=== PATIENT | female | born 1970 | race Caucasian/White ===

== ENCOUNTER 2018-07-28 06:13 | Day surgery (SDC) | payer BC ==
[2018-07-28] MEDS ORDERED: NA CHLORIDE 0.9% 1,000 ML ONE ×2 (06:29→07:24)
[2018-07-28] MEDS ORDERED: LIDOCAINE 1% MPF 5 ML VIAL ONE (06:31)
[2018-07-28 06:33] LABS: Specific Gravity 1.025 (1.005-1.030)
[2018-07-28] MEDS ORDERED: PROPOFOL 200 MG/20 ML VIAL IV ONE ×3 (07:19→08:34)
[2018-07-28] MEDS ORDERED: FENTANYL CITR 100 MCG/2 ML ONE ×2 (07:19→08:49)
[2018-07-28] MEDS ORDERED: LIDOCAINE 2% MPF 5 ML VIAL ONE (07:19)
[2018-07-28] MEDS ORDERED: MIDAZOLAM HCL 2 MG/2 ML INJ ONE (07:19)
[2018-07-28] MEDS: LIDOCAINE 1% W/EPI 1:100,000 MDV 50 ML VIAL ONE ×2 (07:54→07:59)
[2018-07-28] MEDS ORDERED: KETOROLAC 30 MG/ML INJ ONE (08:35)
[2018-07-28] MEDS ORDERED: FENTANYL CITR 100 MCG/2 ML IV ONE (09:04)
--- NOTE | 2018-07-28 20:17 | OP ---
Date of Procedure: 07/28/2018 Surgeon: Lisa Zuniga MD Preoperative Diagnoses: Left lower quadrant pain, large leiomyomata, menopause. Postoperative Diagnoses: Left lower quadrant pain, large leiomyomata, menopause. Procedures Performed: Hysteroscopy and dilatation and curettage. Anesthesia: MAC plus paracervical block. Specimens: Endometrial curettings. Complications: None. Drains: None. Condition: Stable. Findings: Intrauterine cavity appeared to be narrow. No intracavitary lesions were seen. Only 1 tu bal ostium was identified, extremely high cervix, deviated anteriorly. Scant endometrial curettings were obtained, so endometrial biopsy Pipelle was used in order to retrie ve the endometrial sample to maximize the chances of optimal sampling. Indications: The patient is a 48-year-old, presented with left lower quadrant pain. Her primary car e physician, Dr. Edwards, had detected an abdominal mass for which she got worked up and these were foun d to be leiomyomata. She was seen in the office by me. 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 No noted history of fibroids. The left lower quadr ant pain is relatively new in onset. No other adnexal masses were visible. Large fibroids were seen . An MRI was ordered for the patient for better visualization of the entire pelvic cavity and to rul e out adnexal masses. On the transvaginal ultrasound, there were 7-cm and 6-cm two fibroids in the uterus; however, the camden ging with sonography was suboptimal. We discussed the plan of action, which included an endometrial sampling procedure followed by surgery for sampling. Her cervix was extremely high and given her abnormal fibroids, an office biopsy was g oing to be difficult, so the patient was consented to the OR for a hysteroscopy, D and C, exam under anesthesia and brought over. Description Of Procedure: After consent was re-verified, taken back to the OR, placed in a supine fa shion. After MAC was given, she was placed in a dorsal lithotomy position using Nestor stirrups. Pel philip exam performed. Cervix found to be extremely anterior on the anterior wall. Anterior lip of the cervix was extremely difficult to identify, but once identified, Allis clamps were placed. I could place the Allis on the anterior lip and on the posterior lip the cervical canal was visual ized. The SlimLine diagnostic hysteroscope was introduced through here and under direct visualizatio n, the cervical canal was traversed. I could see the patent canal and followed that up into the uter ine cavity. Once the cavity was entered, it appeared to be greatly narrowed, only could visualize 1 tubal ostium, which I presumed could be the right that how the anatomy appeared. There were no intracavitary lesions. After sounding length of 16 cm was detected, the scope was set aside. Then, the cervix was dilated up to 16-German. Then, a 0 endometrial curette was used for kirstne pling, the sampling was inadequate. An EMB was performed as well with a Pipelle. Sample was still s cant. This was sent for permanent pathology. All the instruments were removed. Instrument, needle, and sponge counts were done and were correct at the end of the case. The patient tolerated the procedure well. She will follow up with me in 1 week for pathology results and further surgical plan. ISABELLA Voice ID: [id number] Report ID: [id number]
== END 2018-07-28 09:49 | disposition home or self-care (01) ==
LOC: OR 06:13
PROVIDERS: ATTEND Obstetrics & Gynecology
PROC: 0UJD8ZZ Inspection of Uterus and Cervix, Via Natural or Artificial Opening Endoscopic (ICD-10-PCS; 2018-07-28)
PROC: 0UDB7ZX Extraction of Endometrium, Via Natural or Artificial Opening, Diagnostic (ICD-10-PCS; principal; 2018-07-28 07:30)
DX: D25.9 Leiomyoma of uterus, unspecified (principal); R10.32 Left lower quadrant pain; Z78.0 Asymptomatic menopausal state; E11.9 Type 2 diabetes mellitus without complications; E66.01 Morbid (severe) obesity due to excess calories; Z68.43 Body mass index [BMI] 50.0-59.9, adult; E78.00 Pure hypercholesterolemia, unspecified; Z98.84 Bariatric surgery status; Z90.49 Acquired absence of other specified parts of digestive tract; Z83.3 Family history of diabetes mellitus; Z82.49 Family history of ischemic heart disease and other diseases of the circulatory system
CPT/HCPCS: 81025; 82962; 88305; J2250; J2704; J3010; J7030

== ENCOUNTER 2018-08-17 06:20 | Inpatient (IN) | payer BC ==
[2018-08-15 14:43] LABS: Urine Appearance CLEAR; Urine Bilirubin NEGATIVE (NEG); Urine Blood NEGATIVE (NEG); Urine Color YELLOW; Urine Glucose NEGATIVE (NEG); Urine Protein NEGATIVE (NEG); Urine Specific Gravity 1.025 (1.005-1.030); Urine Urobilinogen 0.2 mg/dL (0.2-1.0)
[2018-08-15 14:47] LABS: Urine Microscopic Reflex NO UMIC
[2018-08-15 14:53] LABS: Absolute Lymphocytes (CBC) 1.9 K/uL (0.7-4.9); Absolute Monocytes 0.5 K/uL (0.1-1.3); Absolute Neutrophil 4.2 K/uL (1.8-8.0); Basophils % 0.7 % (0-1.3); Eosinophils % 2.9 % (0-4.4); Hematocrit 44.2 % (36.0-45.0); MPV 8.5 fL (7.6-11.3); Monocytes % 7.6 % (3.3-12.3); RBC Red Blood Cell Count 5.07 M/uL (3.86-4.86)
[2018-08-17 06:50] LABS: Specific Gravity 1.025 (1.005-1.030)
[2018-08-17] MEDS ORDERED: LIDOCAINE 1% MPF 5 ML VIAL ONE (06:55)
[2018-08-17] MEDS ORDERED: NA CHLORIDE 0.9% 1,000 ML ONE ×3 (07:15→10:26)
[2018-08-17] MEDS ORDERED: PROPOFOL 200 MG/20 ML VIAL IV ONE (07:15)
[2018-08-17] MEDS ORDERED: ROCURONIUM 50 MG/5 ML VIAL IV ONE ×2 (07:16→08:36)
[2018-08-17] MEDS ORDERED: LIDOCAINE 2% MPF 5 ML VIAL ONE (07:17)
[2018-08-17] MEDS ORDERED: FENTANYL CITR 250 MCG/5 ML ONE ×2 (07:17→10:50)
[2018-08-17] MEDS ORDERED: ONDANSETRON 4 MG/2 ML VIAL ONE ×2 (07:18→12:01)
[2018-08-17] MEDS ORDERED: MIDAZOLAM HCL 2 MG/2 ML INJ ONE (07:19)
[2018-08-17] MEDS ORDERED: CEFAZOLIN 2GM (PREMIX IV) 2 GM/50 ML BAG ONE (07:25)
[2018-08-17] MEDS ORDERED: SCOPOLAMINE HYDROBROMIDE PATCH TD ONE (07:45)
[2018-08-17] MEDS ORDERED: DEXAMETHASONE 10 MG/ML VIAL ONE (08:13)
[2018-08-17] MEDS ORDERED: MORPHINE 10 MG/ML VIAL ONE (08:37)
[2018-08-17] MEDS ORDERED: GLYCOPYRROLATE 0.2 MG/ML SYR ONE (08:47)
[2018-08-17] MEDS ORDERED: EPHEDRINE SULF 50 MG/ML VIAL ONE (08:47)
[2018-08-17] MEDS ORDERED: NEOSTIGMINE 1 MG/ML -10 ML VIAL ONE (10:01)
[2018-08-17] MEDS: NA CHLORIDE 0.9% 1,000 ML ONE ×3 (10:38→11:00)
[2018-08-17] MEDS ORDERED: CEFAZOLIN SODIUM 1 GM/VIAL ONE (10:46)
[2018-08-17] MEDS ORDERED: KETOROLAC 30 MG/ML INJ ONE (12:48)
[2018-08-17 13:22] VITALS: O2SAT 94
[2018-08-17] MEDS ORDERED: NALOXONE 0.4 MG/ML VIAL IV PRN (13:44)
[2018-08-17] MEDS ORDERED: MORPHINE/NS PCA 50 MG/50 ML PCA.SYRING IV PRN (13:44)
[2018-08-17] MEDS ORDERED: IBUPROFEN 200 MG TAB PO PRN (13:46)
[2018-08-17] MEDS ORDERED: PROMETHAZINE 25 MG TABLET PO PRN (13:47)
[2018-08-17] MEDS ORDERED: PROMETHAZINE 25 MG/ML VIAL IV PRN (13:47)
[2018-08-17] MEDS ORDERED: Ringers Lactate 1,000 ML IV SCH (14:00)
[2018-08-17] MEDS: KETOROLAC 30 MG/ML INJ IV PRN (14:20)
[2018-08-17] MEDS ORDERED: CEFAZOLIN/NS 1gm 1 GM/50 ML BAG IVPB SCH (17:00)
[2018-08-17] MEDS: CEFAZOLIN/SWI 1gm 1 GM/10 ML SYR IV SCH (17:50)
[2018-08-17 19:12] VITALS: BMI 50.5
[2018-08-17] MEDS: ATORVASTATIN 10 MG TAB PO SCH (21:14)
[2018-08-17] MEDS: Ringers Lactate 1,000 ML IV SCH (23:20)
[2018-08-18] MEDS: CEFAZOLIN/SWI 1gm 1 GM/10 ML SYR IV SCH ×2 (01:23→09:00)
[2018-08-18 04:52] LABS: Absolute Lymphocytes (CBC) 1.1 K/uL (0.7-4.9); Absolute Monocytes 0.9 K/uL (0.1-1.3); Absolute Neutrophil 8.3 K/uL (1.8-8.0); Basophils % 0.2 % (0-1.3); Hematocrit 33.7 % (36.0-45.0); Lymphocytes % 10.4 % (15.3-44.8); Monocytes % 8.6 % (3.3-12.3); RBC Red Blood Cell Count 3.85 M/uL (3.86-4.86)
--- NOTE | 2018-08-18 06:29 | OP ---
Date of Procedure: 08/17/2018 Surgeon: Lisa Zuniga MD Recreation Counselor: Robert Jasso MD. Preoperative Diagnosis: Left lower quadrant pain, large leiomyomata. Postoperative Diagnoses: Left lower quadrant pain, large leiomyomata. Left broad ligament large fib roid. Procedures Performed: 1.Diagnostic laparoscopy. 2.Total abdominal hysterectomy, bilateral salpingo-oophorectomy. 3.Removal of the left broad ligament fibroid completely arising from the posterolateral aspect of th e broad ligament vessels feeding from the vaginal and uterine branches. 4.Cystoscopy. Estimated Blood Loss: 300. Urine Output: 500. Specimens: Uterus, tubes, and ovaries and the fibroid was removed separately. Complications: No complications. Drains: Moss catheter. Condition: Stable. Indications: The patient is a 48-year-old patient without any postmenopausal bleeding, presented wit h left lower quadrant abdominal pain, seen by Dr. Edwards, her primary care provider. The patient has h ad prior gynecological exams mostly on an annual basis at an outside facility and provider without an y remarkable problems. After Dr. Edwards identified an abdominal mass, he ordered imaging. She was found to have a large fibro id and so she was referred to me for evaluation and treatment of her pelvic mass, which was most like ly her fibroid. After discussing with the patient about her symptoms, the only change that the patient has noted duri ng the past few months is left-sided pain. She also has noted that her pelvic area has been feeling tighter and somewhat heavier only notable in the past year on retrospection while we were having this discussion. She had a transvaginal ultrasound, a CT scan, and an MRI of the pelvis. The mass was evaluated by en dometrial sampling. She had no leiomyosarcoma or endometrial adenocarcinoma or atypia. On the CT sc an, it was noted that she had a large abdominal mass consistent with fibroids. Other than that, she had mild bulging anterior abdominal wall in the midline on the left side of the abdomen as well as lo wer lateral abdominal wall without a discrete hernia, mild hepatic steatosis, vertical banded gastrop lasty, and splenomegaly and bilateral . On ultrasound evaluation, there were 2 large fibro ids that were noted, one was 5.8 and another 6.8 cm. Totally, the longest height identified was 20 c m on the transvaginal ultrasound or 19 cm. This proved clarity on the transvaginal and pelvic probes both, endometrial evaluation on the ultrasound was suboptimal; however, the ovaries were not well vi sualized, but no adnexal masses were noted. So, after looking at the location of the fibroids on exa mination and on the imaging, it was noted that the patient had a large leiomyoma either 1 or 2 coales gavin together mostly on the left side. There is no obstruction of the ureter. There is no hydronephr osis or hydroureter noted. No evidence of any lymphadenopathy. No signs of any classical leiomyosar coma characteristics on imaging. Lack of postmenopausal bleeding also was positive. Discussed with the patient about options of observation, resection of the mass or hysterectomy, bilateral salpingo-o ophorectomy, which was the preferred way to treat this. We discussed about laparoscopic and open junie roaches. She was desiring to have this mass removed as well as her uterus and tubes and ovaries, so consented her for this. The patient understood that there is a small chance of leiomyosarcoma just l ess than 1% in incidence without any other characteristics that are consistent with it excepting that she has most recently noticed a pelvic mass which was not notable in the past and without any prior knowledge of her existing condition it is very hard to compare whether this is a newly growing mass o r rapidly growing mass which should be the only concern if it was to be a sarcoma and if that was the case that the prognosis could be worse while performing hysterectomy laparoscopic case, th en contained morcellation was discussed with the patient. If it was not being case, this would be ke pt to a minimum if possible, but it would be difficult to predict as the sampling was also negative. The probability to the pathology was available. The patient understood this. She did not want to _ . She wanted to stay here for her surgery. After consenting the patient, she was taken back to the OR. A 3 g of Ancef were given. She was [facility] ed in a supine fashion on the operating room table. After general anesthesia was given, she was [facility] ed in a dorsal lithotomy position. Pelvic exam was performed and uterus found to be large, at least 20 cm just to the level of the umbilicus and was filling the pelvis. Her cervix was extremely anterior and it was very difficult to visualize as well as get into the uter ine cavity with the VCare. After the arms were tucked by the side using sleds, the patient was placed in dorsal lithotomy using Nestor stirrups. Positioning was checked and time-out was done. The patient was then prepped and liyah ped in a sterile fashion. A Moss was placed to drain the bladder. VCare was introduced into the ut erus with difficulty, but without any problems. Then, we were able to connect the Moss to an LR bag , emptied 300 for retrograde filling and this was left on the floor for drainage. This area was draped. A 1 cm supraumbilical incision was made in the midline with the scalpel. The fascia was incised, tagged. Peritoneum entered bluntly, S retractor was placed, Virgie introduced. Site of entry was checked and unremarkable. There were some adhesions of the omentum to the anterior abdominal wall on the right side just lateral to the midline. The entire upper abdominal surfaces w ere full of adhesions from all the gallbladder and gastroplasty surgeries that the patient has had in the past. The patient was then placed in Trendelenburg position. Pelvic survey was done. The uterine mass was mostly on the left adnexa, going all the way from the anterior abdominal wall to the bony pelvis. T here was no room at all to get posterior to this mass and the mass appeared to be very heavy. The ut erus was small and pushed over, deviated to the right side. Both ovaries and tubes appeared to be un remarkable. There were some adhesions of the omentum to the tube and sigmoid colon to the tube as we ll. Then, at this point, a 5 mm left lower quadrant port was placed and good survey of the pelvic ca vity was done. There was extremely minimal space in an anterior-posterior direction or lateral direc tion from [id number] in order for the uterus to be mobilized or for me to be able to get past to lo ok at it. This was most likely because the entire mass was resting in the left broad ligament withou t any room for me to get posterior because this was completely retroperitoneal. In this case since t here would be no mobility, there was no more distensible space where the uterus can be manipulated mo re than 1 or 2 cm. This was not a case that could be done laparoscopically, so I decided to open the patient. After a midline vertical incision, lower midline incision was made which curved around the right side to connect with a 1 cm incision on the top. Then, the fascial incision was made with a scalpel as w ell. The subcutaneous tissue was cauterized with the help of electrocautery. The fascia was incised, opened up. Peritoneum was then incised sharply with Metzenbaum scissors and extended superiorly and inferiorly all the way down to the apex of the incision and brought down to t he bottom of the lower aspect of the incision, just above the level of the bladder with the cautery. The bowel was retracted superiorly and tucked with 2 lap pads. The patient was placed in Trendelenb urg position and we attempted to dislodge the fibroid. However, this was impossible because this was retroperitoneal and within the left broad ligament. Then, plan was to open the broad ligament on the left side, the anterior leaf of the peritoneum so th at we could get into the plane where the fibroid was and then be able to dissect the fibroid off the sidewall. As part of this, the peritoneum was picked up with 2 DeBakeys. Hemostat was used to create a plane a nd went down inferiorly and superiorly with the help of the Bovie as we were doing this with several large broad ligament vessels that were extremely dilated most likely the feeders to the mass to some extent. One of these was lacerated and there was bleeding that started from here. Quickly this blee ding was controlled with the help of 3-0 Vicryl sutures, pop off to ligate on the patient's side as w ell as on the specimen side and this was left intact without cutting. I then came cephalad and opene d up the round ligament using a Vanna. This was held up and 2 sutures on the patient's side and 1 suture on the specimen side were placed with a CT1 needle on a 0 Vicryl stitch and they were tied berna n. Then, the round ligament was with the help of the Bovie. Then, opened up the broad lig ament and the mesosalpinx. Once this was done with the help of the Bovie, then decided to get the Li gaSure as there were even the small vessels in the peritoneum that were bleeding a lot more than what was desired and optimal. So, once this was done, the 18 mm curved tip LigaSure hand-held was taken and it was programmed. Then, opened the broad ligament both superiorly and inferiorly all the way st aying parallel to the vessels in the lateral aspect of the uterine wall, this way keeping close to th e uterus without dissecting too far lateral. Once this was done, it was difficult to get into the pl ane of the fibroid. However, once using the monopolar, we got into the plane of the fibroid, then th e dissection was carried superiorly and towards the fundus. Then, the utero-ovarian ligament was abi en down, which was also very flattened and the vessels were extremely dilated, so plan had to be made underneath to take these vessels. Then, the mesosalpinx and tube were cauterized and not cut at thi s time to decrease the pulse pressure and flow from the anastomotic vessels between the ovarian and u terine vessels. So, once this was done, on the fibroid the broad ligament was dissected inferiorly t owards the bladder flap and the bladder flap was raised in the usual fashion by using the curved tip LigaSure. Once I came on to the right paravesical space. Here, I stopped the dissection. Then, car ried the dissection in the bladder more inferiorly onto the lower aspect of the cervix. Then, came b ack over. It was not very evident that the uterine vessels were here. It was very difficult to even palpate the posterior aspect of the fibroid. So, at this point, dissection was again carried on in multiple layers till we came down to the fibroid. The wall of the fibroid was well demarcated and we found any vascular plane, then took all this down to the level of the left uterine. The fibroid was the uterine vessels from the ureter and the lateral internal iliac branches just because of its physical presence. All the other structures were pushed inferiorly and far away from the uter ine vessels. Here, the vessels were taken down in terms of cauterization to decrease the pulse press ure. At this time, we had to re-evaluate as the original plan was to dissect the mass off the sidewa ll to keep it intact with the uterus and be able to possibly remove the entire mass along with the ut erus. This was not working, so plan was made to go on the opposite side, take down all the lateral a ttachments of the uterus including the uterine vessels and then come back over this side in order for us to attempt the dissection of the fibroid without as much concern for heavy bleeding as a result o f all the feeding vessels to the uterus. Once this decision was made, I took down the posterior aspect of the broad ligament over the fibroid going posterior to the mass, then went on to take down the utero-ovarian ligament, mesosalpinx, tube, round ligament, all on the right side with the help of the LigaSure. The broad ligament was opened up, anterior leaf was connected with the dissection from the opposite side. Then, the bladder was di ssected inferiorly to free and expose the vessels at the level of the internal os, where the uterines were coming across and ascending. Then, the broad ligament was further cleared up. The posterior l eaf of the broad ligament was opened up. The fibroid was extending all the way to the right uterosac ral, in the posterior lying within the posterior broad ligament. This was extending almost half the way down to the cervix on the lateral left side. Once all this was taken down, which is the peritone um and we were able to expose the vessels here. Once the bladder flap was nicely cleared with the mo nopolar and the bladder pushed inferiorly and isolated the vessels on the right side. The ascending and descending branches were targeted and cauterized and cut with the help of the LigaSure, not keepi ng tension on the pedicles. Once this was done, we were able to keep the ureters safe by taking down the peritoneum. Since the vessels were taken down, then dissection was carried anteriorly to clear up the precervical fascia even more. Once this was done, then attention was paid to the left side ag ain. Able to pull this fibroid with the help of single-tooth tenaculum superiorly and to the right. Since we wanted a good plane, we were able to gradually dissect the mass from its pseudocapsule. Th e entire mass was taken down by nicely peeling the shell back and pulling the mass medially, graduall y, systematically without excessive pressure. All this was taken down. It boiled down to the source of the vessels that were feeding the fibroid from the posterolateral aspect of the cervix, maybe the uterine vessels and the ascending and descending branches. The main uterine vessels of the descendi ng branches were probably feeding this. Once I got into the retroperitoneum beyond the cul-de-sac, t he rectum was much inferior. Got into the posterior cul-de-sac, beyond the peritoneum and I was able to isolate these vessels and these vessels were taken down with the help of the LigaSure. Then, the entire fibroid was set free excepting the area where it was attached to the uterus. Since all the p marianna pressure was down, decided to remove the fibroid completely by taking this down. We were able to dissect this all free from the internal iliac vessels posteriorly from the ureter. The only place this was attached was at the right uterosacral and here I had to take down the peritoneum all the wa y by dissecting it parallel to the sidewall on the right side and gradually peeling off this from the fibroid and then taking the feeders and the attachments at the level of the right uterosacral. Thes e were then medial to the uterosacral and the mass was taken down from the posterior aspect of the fundus. This was not attached. However, it was in the retroperitoneum, right behind the naknek edna and this easily came down when I took the LigaSure to it. So, the entire mass was and shelled out. Then, the uterus was just left by itself without any bleeding. At this point, then the anterior and posterior flaps were re-evaluated. I was able to take down the descending branches, th e cardinal ligaments to detach the cervix and all the way to the level of the vagina and cervix about 4.5 to 5 cm in length. Most likely, it was elongated because of the mass way down into the pelvis a nd this probably stretched the uterus along with the cervix. Then, once the entire cardinal ligament s on both sides were taken down, 2 bites of the Kochers were taken on each side to take down the card inal ligaments besides the LigaSure bites. Then, 2 curved Heaneys were placed right below the manager quality al os. Then, the Razia scissors were used to take down the specimen. The specimen was removed. Then, 0 Vicryl Antonette stitches were placed at both angles, [id number] 0 Vicryl stitch in the ce nter, and 3-0 Vicryl sutures were placed just above the level of the bladder flap, especially on the right side suturing with 3-0 Vicryl x2 and Bovie for cauterization and then the bladder had to be ove rsewn to stop the bleeding from the superficial bleeders on top of the bladder muscle wall. This was imbricated with a 3-0 Vicryl stitch and closed properly. Once that was done, I was able to identify both infundibulopelvic ligaments. The mesosalpinx and tubes were identified as well and the tube wa s dissected laterally from the fimbriated end. Then, the IP ligament was taken down right below the ovary and then the entire specimen was dissected from the left and the right side. Both were handed out for permanent pathology. I was able to have thorough irrigation and suction of the pelvic cavity without any injury to the bowel, bladder, or ureters. I was able to visualize the bladder flap. Th ere was slight bleeding. Another 3-0 Vicryl suture was placed on the anterior vaginal wall, pretty c lose to the bladder dissection. Once this was done, there was optimal hemostasis. After thorough ir rigation and suction were done, all sponges were removed. We were able to close the patient with a 3 -0 Vicryl in a continuous running fashion. The fascia was closed with the help of a loop 0 PDS in a continuous running fashion all the way down to the bottom. Subcutaneous tissue was irrigated and suc tion and closed with the help of interrupted 3-0 Vicryl sutures. The entire skin incision was closed with the help of amando. Cystoscopy was performed with 17-Ivorian sheath 30 degree lens and normal saline as distention medium. The Moss was removed. We went in and looked inside the bladder; the t rigone, the area above the trigone, anterior wall, lateral persaud were all visualized. No evidence of any electrical, mechanical, or thermal injury to them. Both the ureters were completely patent and had good jets of urine from both. I was able to remove the cystoscope, drained the bladder, replaced the Moss. Then, instrument, needle, and sponge counts were done and were correct x3 at the end of the case. The patient was extubated in the OR and taken to PACU in a stable condition. She did not need any transfusion of blood, although she was typed and crossed for 2 units. Her starting hemoglob in was 14 g, so she was never redrawn. She will have a CBC in the morning. Admitted overnight with a morphine PRODUCT MARKETING CONSULTANT and SCDs and thigh-high stockings. INEZ/SHARON Voice ID: [id number] Report ID: [id number]
[2018-08-18] MEDS ORDERED: METFORMIN HCL 500 MG TAB PO SCH (08:00)
[2018-08-18] MEDS ORDERED: VITAMIN D 5,000 UNIT CAP PO SCH (09:00)
[2018-08-18] MEDS ORDERED: SERTRALINE HCL 100 MG TAB PO SCH (09:00)
[2018-08-18] MEDS ORDERED: LISINOPRIL 5 MG TAB PO SCH (09:00)
[2018-08-18] MEDS: Ringers Lactate 1,000 ML IV SCH (09:00)
[2018-08-18] MEDS ORDERED: INFLUENZA VACCINE (for 3y+) 0.5 ML DOSE IMVAC ONE (09:00)
[2018-08-18] MEDS: KETOROLAC 30 MG/ML INJ IV PRN (15:40)
[2018-08-18] MEDS ORDERED: HYDROCODONE/APAP 5/325 MG TAB PO PRN (15:43)
--- NOTE | 2018-08-18 15:50 | P.PN ---
Subjective Date of Service: 08/18/18 Subjective: No new changes, Tolerating diet (still on information tech hall removed adn pt voided no flatus c/o gas pain denies VB), Ambulating, Improving Review of Systems General: Unremarkable Eyes: Unremarkable Respiratory: Unremarkable Cardiovascular: Unremarkable Gastrointestinal: No Distention, Unremarkable (incision CDI with dressing inplace, appropriately tender) Neurological: Unremarkable Physical Examination - Vital Signs Temperature: 99.1 F Blood Pressure: 103/55 Pulse: 84 Respirations: 18 - Physical Exam General: Alert HEENT: Atraumatic Neck: Supple Respiratory: Clear to auscultation bilaterally Cardiovascular: No edema Gastrointestinal: Normal bowel sounds, Tenderness (incision CDI) - Studies Laboratory Data (last 24 hrs) 08/18/18 04:27: Sodium 142, Potassium 4.0, BUN 13, Creatinine 0.93, Glucose 149 H 08/18/18 04:27: WBC 10.3 D, Hgb 11.2 L D, Hct 33.7 L D, Plt Count 234 D Assessment & Plan - Problems (Diagnosis) (1) Leiomyoma of uterus Current Visit: Yes Status: Acute Plan: s/p NICK BSO broad lig fibroid removal needs to come offf information tech po meds amb well hepwell advanced diet and dede well Hb11gm down from 14 lytes normal low shabbir observe for now pain control IS binder anticipate 2-3d stay (2) Left lower quadrant pain Current Visit: Yes Status: Acute
[2018-08-18] MEDS ORDERED: LIRAGLUTIDE SQ SCH (21:00)
[2018-08-18] MEDS ORDERED: PREGABALIN 25 MG PO SCH (21:00)
[2018-08-18] MEDS: ATORVASTATIN 10 MG TAB PO SCH (21:00)
[2018-08-19 07:48] VITALS: BP 149/75; TEMP 98.6
== END 2018-08-19 08:50 | disposition home or self-care (01) | DRG 743 ==
LOC: OR 06:20 → 2ND-WC 13:11
PROVIDERS: ADMIT Obstetrics & Gynecology; ATTEND Obstetrics & Gynecology
PROC: 0UJD4ZZ Inspection of Uterus and Cervix, Percutaneous Endoscopic Approach (ICD-10-PCS; 2018-08-17)
PROC: 0UT20ZZ Resection of Bilateral Ovaries, Open Approach (ICD-10-PCS; 2018-08-17)
PROC: 0UT70ZZ Resection of Bilateral Fallopian Tubes, Open Approach (ICD-10-PCS; 2018-08-17)
PROC: 0UB90ZZ Excision of Uterus, Open Approach (ICD-10-PCS; 2018-08-17)
PROC: 0TJB8ZZ Inspection of Bladder, Via Natural or Artificial Opening Endoscopic (ICD-10-PCS; 2018-08-17)
PROC: 0UT90ZZ Resection of Uterus, Open Approach (ICD-10-PCS; principal; 2018-08-17 07:30)
DX: D25.9 Leiomyoma of uterus, unspecified (principal); E11.9 Type 2 diabetes mellitus without complications; Z79.84 Long term (current) use of oral hypoglycemic drugs; E66.01 Morbid (severe) obesity due to excess calories; K76.0 Fatty (change of) liver, not elsewhere classified
CPT/HCPCS: 36415; 80048; 81003; 81025; 82962; 85025; 86850; 86900; 86901; 88307; J0690; J1100; J2250; J2270; J2405; J2704; J2710; J3010; J7030

== ENCOUNTER 2019-06-16 06:25 | Day surgery (SDC) | payer BC ==
--- NOTE | 2019-06-09 08:56 | EKG ---
Test Date: 2019-06-09 Test Time: 08:45:37 Cigarette Catcher: RANDY MEASUREMENT RESULTS: Intervals: Rate: 83 PA: 176 QRSD: 78 QT: 384 QTc: 451 [place]: P: 48 PA: 176 QRS: 19 T: 24 INTERPRETIVE STATEMENTS: Normal sinus rhythm Normal ECG No previous ECG available for comparison Electronically Signed On 06-09-19 08:56:15 PLAN REP by Vikas Blancas
--- NOTE | 2019-06-09 08:59 | RAD REPORT ---
EXAM DESCRIPTION: RAD - Chest Pa And Lat (2 Views) - 06/09/2019 8:52 am CLINICAL HISTORY: preop Chest pain. COMPARISON: No comparisons FINDINGS: The lungs are clear except for a few small calcified benign granulomata. The heart is norm al in size. No displaced fractures. Cholecystectomy clips. IMPRESSION: No acute or concerning finding suspected.
[2019-06-09 09:12] LABS: Absolute Lymphocytes (CBC) 1.5 K/uL (0.7-4.9); Basophils % 0.6 % (0-1.3); Hematocrit 38.8 % (36.0-45.0); Lymphocytes % 23.3 % (15.3-44.8); MPV 7.6 fL (7.6-11.3); RBC Red Blood Cell Count 4.61 M/uL (3.86-4.86)
[2019-06-09 09:31] LABS: Albumin 3.9 g/dL (3.4-5.0); Bilirubin Total 0.5 mg/dL (0.2-1.0); Potassium 4.3 mmol/L (3.5-5.1); Protein, Total 7.8 g/dL (6.4-8.2)
--- OUTSIDE RECORDS SUMMARY | 2019-06-16 06:30 | XMS REPORT ---
:1970 Author Organization [employer] Care Team Providers Name Role Phone Nhan Lozoya Provider Role Unavailable Allergies No Known Allergies Problems Problem Type Condition Code Onset Dates Condition Status Problem Locking of right knee M23.91 Active Problem Right sciatic nerve pain M54.31 Active Problem Derangement of anterior horn of M23.241 Active lateral meniscus due to old tear or injury, right knee Problem Morbid (severe) obesity due to E66.01 Active excess calories Problem Body mass index (BMI) of 50-59.9 in Z68.43 Active adult Problem Pain, joint, knee, right M25.561 Active Medications No Known Medications Results No Known Results Summary Purpose [employer] Submission
--- OUTSIDE RECORDS SUMMARY | 2019-06-16 06:31 | XMS REPORT ---
:1970 Author Organization [employer] Care Team Providers Name Role Phone Nhan Lozoya Provider Role Unavailable Allergies, Adverse Reactions, Alerts Substance Reaction Event Type N.K.D.A. Info Not Available Non Drug Allergy Problems Problem Type Condition Code Onset Dates Condition Status Assessment Pain, joint, knee, right M25.561 Active Problem Body mass index (BMI) of 50-59.9 Z68.43 Active in adult Assessment Primary osteoarthritis of right M17.11 Active knee Assessment Chondromalacia of right knee M94.261 Active Assessment Complex tear of lateral meniscus S83.271A Active of right knee as current injury, initial encounter Problem Primary osteoarthritis of right M17.11 Active knee Problem Derangement of anterior horn of M23.241 Active lateral meniscus due to old tear or injury, right knee Problem Primary osteoarthritis of right M17.11 Active knee Problem Morbid (severe) obesity due to E66.01 Active excess calories Problem Right sciatic nerve pain M54.31 Active Problem Locking of right knee M23.91 Active Problem Pain, joint, knee, right M25.561 Active Medications Medication Code Code Instructions Start End Status Dosage System Date Date Atorvastatin [facility] 59347493910 20 MG Oral Active TK 1 T PO Calcium QD AFTER THE [employer] MEAL Sertraline HCl [facility] 51474998888 100 MG Oral Active TK 1 T PO BID Metformin HCl [facility] 56095244226 850 MG Oral Active TK 1 T PO BID WITH CASSIA AND SUPPER Naproxen [facility] 37386648016 375 mg Orally Active 1 tablet Twice a day Lyrica ND 04219924074 25 MG Oral Active (Schedule V Drug) TK ONE C PO QHS Lisinopril [facility] [address]-02 Active not defined BD Pen Needle [facility] 32942663877 32G X 4 MM Active USE Leeann U/F DIRECTED ONCE A DAY Results No Known Results Summary Purpose [employer] Submission
--- OUTSIDE RECORDS SUMMARY | 2019-06-16 06:31 | XMS REPORT ---
[...] Start End Status Dosage System Date Date Naproxen [facility] 04277765338 375 mg Orally Active 1 tablet Twice a day Sertraline HCl [facility] 41499092161 100 MG Oral Active TK 1 T PO BID Tramadol HCl ND 97498812797 50 MG Orally May 12, Active 1 tablet Q6H PRN PAIN 2019 as needed Atorvastatin ND 96668686953 20 MG Oral Active TK 1 T PO Calcium QD AFTER THE [employer] ME[facility] Lisinopril [facility] [address]-63 Active not defined BD Pen Needle [facility] 26391918539 32G X 4 MM Active USE Leeann U/F DIRECTED ONCE A DAY Metformin HCl ND 75902610770 850 MG Oral Active TK 1 T PO BID WITH CASSIA AND SUPPER Naproxen ND 24915412711 375 MG Orally May 12, Active 1 tablet every 12 hrs 2018 with food prn pain or milk as needed Lyrica ND 88148468060 25 MG Oral Active (Schedule V Drug) TK ONE C PO QHS Results No Known Results Summary Purpose [employer] Submission
--- OUTSIDE RECORDS SUMMARY | 2019-06-16 06:31 | XMS REPORT ---
:1970 Author Organization [employer] Care Team Providers Name Role Phone Nhan Lozoya Provider Role Unavailable Allergies No Known Allergies Problems Problem Type Condition Code Onset Dates Condition Status Problem Body mass index (BMI) of 50-59.9 in Z68.43 Active adult Problem Primary osteoarthritis of right M17.11 Active [...] Medications Results No Known Results Summary Purpose [employer] Submission
--- OUTSIDE RECORDS SUMMARY | 2019-06-16 06:31 | XMS REPORT ---
:1970 Author Organization [employer] Care Team Providers Name Role Phone Nhan Lozoya Provider Role Unavailable Allergies, Adverse Reactions, Alerts Substance Reaction Event Type N.K.D.A. Info Not Available Non Drug Allergy Problems Problem Type Condition Code Onset Dates Condition Status Assessment Pain in joint of right knee M25.561 Active Problem Body mass index (BMI) of 50-59.9 Z68.43 Active in adult Assessment Contusion of right knee, initial S80.01XA Active encounter Assessment Primary osteoarthritis of right M17.11 Active [...] Start End Status Dosage System Date Date BD Pen Needle [facility] 91659232179 32G X 4 MM Active USE Leeann U/F DIRECTED ONCE A DAY Atorvastatin [facility] 00437317269 20 MG Oral Active TK 1 T PO Calcium QD AFTER THE [facility] ME[facility] Lisinopril [facility] [address]-43 Active not defined Metformin HCl ND 00486243503 850 MG Oral Active TK 1 T PO BID WITH CASSIA AND SUPPER Naproxen ND 88806167670 375 MG Orally May 12, Active 1 tablet every 12 hrs 2018 with food prn pain or milk as needed Sertraline HCl ND 99485113824 100 MG Oral Active TK 1 T PO BID Naproxen ND 11485620350 375 mg Orally Active 1 tablet Twice a day Lyrica [facility] 86937000086 25 MG Oral Active (Schedule V Drug) TK ONE C PO QHS Tramadol HCl [facility] 89365549721 50 MG Orally May 12, Active 1 tablet Q6H PRN PAIN 2019 as needed Results No Known Results Summary Purpose [employer] Submission
[2019-06-16] MEDS ORDERED: NA CHLORIDE 0.9% 1,000 ML ONE ×2 (06:38→09:09)
[2019-06-16] MEDS ORDERED: CEFAZOLIN/SWI 2gm 2 GM/20 ML SYR ONE (06:38)
[2019-06-16] MEDS ORDERED: propofoL 200 MG/20 ML VIAL IV ONE ×2 (07:12→07:58)
[2019-06-16] MEDS ORDERED: LIDOCAINE 2% MPF 5 ML VIAL ONE (07:13)
[2019-06-16] MEDS ORDERED: FENTANYL CITR 100 MCG/2 ML ONE (07:13)
[2019-06-16] MEDS ORDERED: MIDAZOLAM HCL 2 MG/2 ML INJ ONE (07:15)
[2019-06-16] MEDS ORDERED: ONDANSETRON 4 MG/2 ML VIAL ONE (07:38)
[2019-06-16] MEDS ORDERED: ROCURONIUM 50 MG/5 ML VIAL IV ONE (07:38)
[2019-06-16] MEDS ORDERED: SUCCINYLCHOLINE 20 MG/ML (10 ML) IV ONE (07:40)
[2019-06-16] MEDS: BUPIVACAINE 0.25% PF 30 ML VIAL ONE ×2 (08:24→08:50)
[2019-06-16] MEDS ORDERED: GLYCOPYRROLATE 0.2 MG/ML SYR ONE (08:38)
[2019-06-16] MEDS ORDERED: NEOSTIGMINE 1 MG/ML -10 ML VIAL ONE (08:42)
[2019-06-16] MEDS: HYDROMORPHONE HCL 1 MG/ML INJ ONE ×2 (09:15→09:25)
--- NOTE | 2019-06-16 09:21 | P.BOP ---
Preoperative diagnosis: right knee lateral meniscus tear Postoperative diagnosis: same, right knee medial meniscus tear Primary procedure: right knee partial medial and lateral meniscectomies Secondary procedure: right knee lateral femoral condyle chondroplasty Petrographer: NONE,NONE Estimated blood loss: 5 cc Specimen: none Findings: see dictation Anesthesia: General Complications: None Implants: none Fluids & blood products: per anesthesia record; TT: 31 mins @ 300 mmHG Transferred to: Recovery Room Condition: Good
[2019-06-16] MEDS ORDERED: MEPERIDINE HCL 25 MG/0.5 ML ONE (09:35)
[2019-06-16 11:25] VITALS: TEMP 98.2
[2019-06-16 11:30] VITALS: BP 116/52; O2SAT 96
--- NOTE | 2019-06-17 06:40 | OP ---
Date of Procedure: 06/16/2019 Surgeon: Nhan Lozoya MD Preoperative Diagnosis: Right knee lateral meniscus tear. Postoperative Diagnoses: 1.Right knee lateral meniscus tear. 2.Right knee medial meniscus tear. 3.Right knee osteoarthritis. Procedure Performed: 1.Right knee partial, medial, and lateral meniscectomies. 2.Right knee lateral femoral condyle chondroplasty. Anesthesia: General endotracheal. Fluids: Per Anesthesia record. Estimated Blood Loss: 5 mL. Complications: None. Implants: None. Tourniquet Time: 31 minutes at 300 mmHg. Fluids: Per anesthesia record. Indication For Procedure: Ms. Jimenez is a 49-year-old female who presented to my clinic with signs a nd symptoms consistent with a right knee lateral meniscus tear and MRI findings consistent with a rig ht lateral meniscus tear. The patient failed conservative treatment measures including injection and had continued pain that interfered with her activities of daily living and had difficulty walking. I discussed with the patient at length risks and benefits associated with operative and nonoperative treatment. The patient has some underlying osteoarthritis. I discussed with the patient that the ar throscopy would not address or improve her symptoms secondary to osteoarthritis, but would help with her meniscal tear. She expressed understanding and elected to proceed with the operative treatment. Description Of Procedure: After informed consent was obtained, the patient was identified in the pre operative holding area. The right lower extremity was marked. The patient was then brought back to the operating room, transferred to the operating table in supine fashion, placed under general endotr acheal anesthesia. The right lower extremity was then prepped and draped in usual sterile fashion. A time-out was initiated. The correct patient and procedure were confirmed and identified. The patie nt did receive a preoperative prophylactic antibiotics. The right lower extremity was examined using an Esmarch and the tourniquet was inflated to 300 mmHg. Standard anteromedial and anterolateral por tals were created. The arthroscope was brought in via the anterolateral portal and diagnostic arthro scopy was performed. The scope was brought into the patellofemoral joint. There was no significant chondromalacia changes noted. Arthroscope was brought into both medial and lateral gutters and no lo ose bodies found within the gutters. The arthroscope was brought into the medial compartment. The p atient was noted to have a small tear of the anterior horn of the medial meniscus. Using an [employer] opic shaver, a partial medial meniscectomy was performed to smooth meniscal borders. There was no si gnificant chondral damage or chondromalacia noted on the medial femoral condyle, medial tibial platea u. The arthroscope was brought into the intercondylar notch. The patient was noted to have an intac t ACL. Within the notch, the patient did have a fragment of her anterior horn of her lateral meniscu s, which was flipped up into the intercondylar notch. A partial lateral meniscectomy was performed u sing an arthroscopic shaver and meniscal biter to stable meniscal borders within the anterior horn. The patient has significant amount of damage to her anterior horn of the lateral meniscus with minima l rim remaining within the anterior horn and body junction. The patient did have overall good menisc us remaining in the body as well as posterior horns. Partial meniscectomy was performed to smooth th e meniscal borders. The arthroscopic instruments were removed without complication. The wounds were then irrigated and closed using a 3-0 Monocryl. Sterile dressings were applied. Tourniquet was let down. The patient was awakened and transferred to PACU in stable condition. Postoperative Plan: She will be weightbearing as tolerated on the right lower extremity. Physical T herapy will be consulted to aid with mobilization. She will follow up in clinic in 2 weeks for wound check. BRII/SHARON Voice ID: [id number] Report ID: [id number]
== END 2019-06-16 10:55 | disposition home or self-care (01) ==
LOC: OR 06:25
PROVIDERS: ATTEND Orthopaedic Surgery Sports Medicine
PROC: 0SBC4ZZ Excision of Right Knee Joint, Percutaneous Endoscopic Approach (ICD-10-PCS; 2019-06-16)
PROC: 0SBC4ZZ Excision of Right Knee Joint, Percutaneous Endoscopic Approach (ICD-10-PCS; principal; 2019-06-16 07:30)
DX: S83.271A Complex tear of lateral meniscus, current injury, right knee, initial encounter (principal); S83.241A Other tear of medial meniscus, current injury, right knee, initial encounter; M94.261 Chondromalacia, right knee; M17.11 Unilateral primary osteoarthritis, right knee; E11.9 Type 2 diabetes mellitus without complications; E66.01 Morbid (severe) obesity due to excess calories; Z68.42 Body mass index [BMI] 45.0-49.9, adult; Z87.891 Personal history of nicotine dependence; Z83.3 Family history of diabetes mellitus; Z82.49 Family history of ischemic heart disease and other diseases of the circulatory system
CPT/HCPCS: 93005; 85025; 36415; 85610; 82947 ×2; 85730; 83036; 80053; 71046; 29880; J2704 ×2; J2710; J0330; J2250; J3010; J2175; J1170; J0690; J7030 ×2; J2405